=== PATIENT | male | born 1980 | race African-American/Black ===

== ENCOUNTER 2019-04-10 22:57 | Emergency (ER) | payer MEDICAID ==
[~2019-04-10] VITALS: Ht 172.7 cm; Wt 75.0 kg
[~2019-04-10 22:57] MED LIST: BENA20TA10 PO; CLAR10 PO; LISI-652
[2019-04-10 23:17] VITALS: BP 143/96
[2019-04-11 00:53] LABS: CLARITY URINE TURBID (CLEAR); COLOR URINE YELLOW (YELLOW); KETONES URINE TRACE (NEGATIVE); LEUKOCYTE ESTERASE URINE 3+ (NEGATIVE); NITRITE URINE NEGATIVE (NEGATIVE); OCCULT BLOOD URINE 3+ (NEGATIVE); PH URINE 5.5 (4.5-8.0); PROTEIN URINE 1+ (NEGATIVE); SPECIFIC GRAVITY URINE 1.028 (1.005-1.030)
== END 2019-04-11 02:02 | disposition home or self-care (01) ==
LOC: ER 22:57
DX: N39.0 Urinary tract infection, site not specified (principal)
CPT/HCPCS: 87077; 87186; 99283

== ENCOUNTER 2019-05-07 02:50 | Emergency (ER) | payer MEDICAID ==
[~2019-05-07] VITALS: Ht 172.7 cm; Wt 75.0 kg
[2019-05-07 04:38] LABS: CLARITY URINE TURBID (CLEAR); COLOR URINE YELLOW (YELLOW); KETONES URINE NEGATIVE (NEGATIVE); LEUKOCYTE ESTERASE URINE 3+ (NEGATIVE); NITRITE URINE NEGATIVE (NEGATIVE); OCCULT BLOOD URINE 3+ (NEGATIVE); PROTEIN URINE 1+ (NEGATIVE); SPECIFIC GRAVITY URINE 1.017 (1.005-1.030)
[2019-05-07 06:35] VITALS: BP 132/92
== END 2019-05-07 06:35 | disposition home or self-care (01) ==
LOC: ER 02:50
DX: N39.0 Urinary tract infection, site not specified (principal); Z91.14 Patient's other noncompliance with medication regimen
CPT/HCPCS: 82962; 87077; 87186; 99283

== ENCOUNTER 2019-05-21 11:51 | Emergency (ER) | payer MEDICAID ==
[~2019-05-21] VITALS: Ht 172.7 cm; Wt 75.0 kg
[2019-05-21 12:41] LABS: CLARITY URINE TURBID (CLEAR); COLOR URINE YELLOW (YELLOW); KETONES URINE NEGATIVE (NEGATIVE); LEUKOCYTE ESTERASE URINE 3+ (NEGATIVE); NITRITE URINE NEGATIVE (NEGATIVE); OCCULT BLOOD URINE 3+ (NEGATIVE); PH URINE 6.5 (4.5-8.0); PROTEIN URINE 2+ (NEGATIVE); SPECIFIC GRAVITY URINE 1.008 (1.005-1.030); UROBILINOGEN URINE 0.2 E.U./dL (0.2-1.0)
[2019-05-21] MEDS ORDERED: KETOROLAC 60MG/2ML VIAL IM ONE (13:15)
[2019-05-21] MEDS ORDERED: AZITHROMYCIN 500 MG TABLET PO ONE (13:15)
[2019-05-21] MEDS ORDERED: CEFTRIAXONE SODIUM 250 MG/VIAL IM ONE (13:15)
[2019-05-21] MEDS ORDERED: LIDOCAINE HCL 1% 20ML VIAL (Pyxis) INJ INFIL ONE (13:15)
[2019-05-21 13:28] VITALS: BP 129/101
[2019-05-24 04:12] LABS: CHLAMYDIA TRACHOMATIS NAA Negative (Negative); NEISSERIA GONORRHOEAE NAA Negative (Negative)
== END 2019-05-21 13:52 | disposition home or self-care (01) ==
LOC: ER 11:51
DX: N39.0 Urinary tract infection, site not specified (principal); I10 Essential (primary) hypertension; F12.90 Cannabis use, unspecified, uncomplicated
CPT/HCPCS: 81003; 82962; 87077; 87086; 87186; 87491; 87591; 96372; 99283; J0696; J1885; J3490

== ENCOUNTER 2019-06-29 12:47 | Emergency (ER) | payer MEDICAID ==
[~2019-06-29] VITALS: Ht 170.2 cm; Wt 77.0 kg
[2019-06-29 13:57] VITALS: BP 141/102
[2019-06-29 16:58] LABS: BASOPHILS % 0.7 % (0.0-2.0); EOSINOPHILS % 0.9 % (0.0-5.0); HEMATOCRIT. 42.9 % (42.0-52.0); HEMOGLOBIN. 14.5 g/dL (14.0-18.0); LYMPHOCYTES % 17.7 % (20.0-50.0); MEAN CORPUSCULAR HEMOGLOBIN 30.6 pg (28.0-32.0); MEAN CORPUSCULAR VOLUME 90.7 fL (80.0-94.0); MEAN PLATELET VOLUME 8.2 fl (7.4-10.4); MONOCYTES % 10.1 % (2.0-8.0); NEUTROPHILS % 70.6 % (40.0-76.0); PLATELET 240 x1000/uL (130-400); RED BLOOD CELL COUNT 4.74 mill/uL (4.7-6.1); RED CELL DISTRIBUTION WIDTH 14.3 % (11.6-14.6)
[2019-06-29 16:59] LABS: CHLORIDE 107 mEq/L (98-107)
[2019-06-29 17:12] LABS: CLARITY URINE CLOUDY (CLEAR); COLOR URINE YELLOW (YELLOW); KETONES URINE NEGATIVE (NEGATIVE); LEUKOCYTE ESTERASE URINE 3+ (NEGATIVE); NITRITE URINE NEGATIVE (NEGATIVE); OCCULT BLOOD URINE 3+ (NEGATIVE); PROTEIN URINE 2+ (NEGATIVE); SPECIFIC GRAVITY URINE 1.005 (1.005-1.030); UROBILINOGEN URINE 0.2 E.U./dL (0.2-1.0)
== END 2019-06-29 17:56 | disposition home or self-care (01) ==
LOC: ER 12:47
DX: N39.0 Urinary tract infection, site not specified (principal); R03.0 Elevated blood-pressure reading, without diagnosis of hypertension; H54.7 Unspecified visual loss; Z87.828 Personal history of other (healed) physical injury and trauma
CPT/HCPCS: 36415; 80048; 81003; 87077; 87186; 99284

== ENCOUNTER 2019-12-10 13:02 | Emergency (ER) | payer MEDICAID ==
[~2019-12-10] VITALS: Ht 180.3 cm; Wt 100.0 kg
[2019-12-10] MEDS ORDERED: SODIUM CHLORIDE 0.9% 1,000 ML IV ONE (14:48)
[2019-12-10 15:23] LABS: HEMATOCRIT. 45.7 % (42.0-52.0); HEMOGLOBIN. 15.4 g/dL (14.0-18.0); MEAN CORPUSCULAR HEMOGLOBIN 30.8 pg (28.0-32.0); MEAN CORPUSCULAR VOLUME 91.6 fL (80.0-94.0); PLATELET 268 x1000/uL (130-400); RED BLOOD CELL COUNT 4.99 mill/uL (4.7-6.1); RED CELL DISTRIBUTION WIDTH 13.9 % (11.6-14.6)
[2019-12-10 15:29] LABS: CHLORIDE 103 mEq/L (98-107)
[2019-12-10] MEDS ORDERED: METHYLPREDNISOLONE SOD SUCC 125 MG/2 ML VIAL IV ONE (16:15)
[2019-12-10 16:33] LABS: PLATELET ESTIMATE NORMAL
[2019-12-10 18:19] VITALS: BP 134/98
== END 2019-12-10 18:21 | disposition home or self-care (01) ==
LOC: ER 14:01
DX: J45.909 Unspecified asthma, uncomplicated (principal); R06.03 Acute respiratory distress; H54.7 Unspecified visual loss; Z90.49 Acquired absence of other specified parts of digestive tract; Z87.440 Personal history of urinary (tract) infections; Z87.19 Personal history of other diseases of the digestive system; Z79.899 Other long term (current) drug therapy
CPT/HCPCS: 36415; 71045; 80053; 85025; 93005; 96374; 99285; J2930; J7030

== ENCOUNTER 2022-04-08 21:13 | Inpatient (IN) | payer MEDICAID ==
[~2022-04-08] VITALS: Ht 172.7 cm; Wt 80.5 kg
[~2022-04-08 21:13] MED LIST changes: +BENA-8 PO; -BENA20TA10 PO
[2022-04-09] MEDS ORDERED: ONDANSETRON HCL 4MG/2ML INJ IV STA ×2 (00:12→02:01)
[2022-04-09] MEDS ORDERED: MORPHINE SULFATE 4 MG/ML CPJ (NOT FOR IM USE) IV STA ×2 (00:12→02:01)
[2022-04-09] MEDS ORDERED: SODIUM CHLORIDE 0.9% 1,000 ML IV ONE ×2 (00:15→02:00)
[2022-04-09 00:27] LABS: BASOPHILS % 0.3 % (0.0-2.0); EOSINOPHILS % 0.3 % (0.0-5.0); HEMATOCRIT. 43.3 % (42.0-52.0); HEMOGLOBIN. 14.5 g/dL (14.0-18.0); LYMPHOCYTES % 8.1 % (20.0-50.0); MEAN CORPUSCULAR HEMOGLOBIN 30.1 pg (28.0-32.0); MEAN CORPUSCULAR VOLUME 90.2 fL (80.0-94.0); MEAN PLATELET VOLUME 8.5 fl (7.4-10.4); MONOCYTES % 5.6 % (2.0-8.0); NEUTROPHILS % 85.7 % (40.0-76.0); PLATELET 285 x1000/uL (130-400); RED BLOOD CELL COUNT 4.81 mill/uL (4.7-6.1); RED CELL DISTRIBUTION WIDTH 13.6 % (11.6-14.6)
[2022-04-09 00:34] LABS: PROTHROMBIN TIME 11.1 sec (9.6-11.0)
[2022-04-09 00:49] LABS: CHLORIDE 104 mEq/L (98-107)
[2022-04-09] MEDS ORDERED: PIPERACILLIN/TAZ 3.375G PREMIX 50 ML IV ONE (02:00)
[2022-04-09] MEDS ORDERED: VANCOMYCIN 1G PREMIX 200 ML IV ONE (02:00)
[2022-04-09 03:01] LABS: CLARITY URINE CLEAR (CLEAR); COLOR URINE YELLOW (YELLOW); KETONES URINE TRACE (NEGATIVE); LEUKOCYTE ESTERASE URINE NEGATIVE (NEGATIVE); NITRITE URINE NEGATIVE (NEGATIVE); OCCULT BLOOD URINE NEGATIVE (NEGATIVE); PROTEIN URINE TRACE (NEGATIVE); SPECIFIC GRAVITY URINE 1.019 (1.005-1.030); UROBILINOGEN URINE 0.2 E.U./dL (0.2-1.0)
[2022-04-09] MEDS ORDERED: VANCOMYCIN 1G PREMIX 200 ML IV SCH (05:30)
[2022-04-09] MEDS ORDERED: MORPHINE SULFATE 2 MG/ML CPJ (NOT FOR IM USE) IV PRN (07:30)
[2022-04-09 09:38] VITALS: BP 157/110
[2022-04-09] MEDS ORDERED: ONDANSETRON HCL 4MG/2ML INJ IV PRN (10:45)
[2022-04-09] MEDS ORDERED: NALOXONE HCL 0.4MG/ML VIAL IV PRN (11:15)
[2022-04-09 12:00] VITALS: BP 166/110
[2022-04-09] MEDS: PIPERACILLIN/TAZOBACTAM 3.375 G in DEXTROSE 5% WATER 50 ML IV SCH ×2 (13:33→22:38)
[2022-04-09] MEDS: HYDRALAZINE 20MG/ML VIAL IV SCH ×3 (13:33→23:43)
[2022-04-09 16:00] VITALS: BP 138/63
[2022-04-09] MEDS: DEXT 5%/0.45% NACL 1000ML 1,000 ML IV SCH (17:23)
[2022-04-09 20:00] VITALS: BP 151/100
[2022-04-09] MEDS: MORPHINE SULFATE 2 MG/ML CPJ (NOT FOR IM USE) IV PRN (21:06)
[2022-04-09] MEDS ORDERED: MORPHINE SULFATE 2 MG/ML CPJ (NOT FOR IM USE) IV SCH (23:30)
[2022-04-10] VITALS: BP 146/105
[2022-04-10] MEDS: MORPHINE SULFATE 2 MG/ML CPJ (NOT FOR IM USE) IV PRN (03:52)
[2022-04-10 04:00] VITALS: BP 152/89
[2022-04-10] MEDS: PIPERACILLIN/TAZOBACTAM 3.375 G in DEXTROSE 5% WATER 50 ML IV SCH ×3 (05:49→21:51)
[2022-04-10] MEDS: HYDRALAZINE 20MG/ML VIAL IV SCH ×3 (05:50→17:03)
[2022-04-10 06:39] LABS: BASOPHILS % 0.3 % (0.0-2.0); HEMATOCRIT. 44.9 % (42.0-52.0); HEMOGLOBIN. 15.3 g/dL (14.0-18.0); LYMPHOCYTES % 12.5 % (20.0-50.0); MEAN CORPUSCULAR HEMOGLOBIN 30.6 pg (28.0-32.0); MEAN CORPUSCULAR VOLUME 90.1 fL (80.0-94.0); MEAN PLATELET VOLUME 8.8 fl (7.4-10.4); MONOCYTES % 13.7 % (2.0-8.0); NEUTROPHILS % 73.5 % (40.0-76.0); PLATELET 321 x1000/uL (130-400); RED BLOOD CELL COUNT 4.99 mill/uL (4.7-6.1); RED CELL DISTRIBUTION WIDTH 14.2 % (11.6-14.6)
[2022-04-10 07:02] LABS: CHLORIDE 102 mEq/L (98-107)
[2022-04-10 08:00] VITALS: BP 138/97
[2022-04-10] MEDS: PANTOPRAZOLE SODIUM 40 MG/VIAL IV SCH (08:55)
[2022-04-10] MEDS: DEXT 5%/0.45% NACL 1000ML 1,000 ML IV SCH ×2 (08:56→17:02)
[2022-04-10] MEDS ORDERED: DIATR MEGLU/DIATRIZOATE SOLN 30ML PO NR (10:45)
[2022-04-10] MEDS: MORPHINE SULFATE 4 MG/ML CPJ (NOT FOR IM USE) IV PRN ×3 (11:42→21:51)
[2022-04-10 12:00] VITALS: BP 145/105
[2022-04-10] MEDS ORDERED: [UNRECOGNIZED DRUG - SUPPLY] ONE (13:01)
[2022-04-10] MEDS ORDERED: DIATR MEGLU/DIATRIZOATE SOLN 120ML ONE (13:02)
[2022-04-10 16:00] VITALS: BP 131/87
[2022-04-10] MEDS: CHLORPROMAZINE HCL 25MG/1ML AMP IM PRN (19:36)
[2022-04-10 20:00] VITALS: BP 146/95
[2022-04-11] VITALS: BP 118/89
[2022-04-11 04:00] VITALS: BP 140/98
[2022-04-11] MEDS: MORPHINE SULFATE 4 MG/ML CPJ (NOT FOR IM USE) IV PRN ×4 (04:12→21:09)
[2022-04-11] MEDS: HYDRALAZINE 20MG/ML VIAL IV SCH ×5 (06:00→23:04)
[2022-04-11 06:44] VITALS: BP 132/87
[2022-04-11] MEDS: PIPERACILLIN/TAZOBACTAM 3.375 G in DEXTROSE 5% WATER 50 ML IV SCH ×3 (06:50→23:04)
[2022-04-11] MEDS: DEXT 5%/0.45% NACL 1000ML 1,000 ML IV SCH (06:50)
[2022-04-11 08:00] VITALS: BP 146/93
[2022-04-11] MEDS: CHLORPROMAZINE HCL 25MG/1ML AMP IM PRN (08:10)
[2022-04-11] MEDS: PANTOPRAZOLE SODIUM 40 MG/VIAL IV SCH (08:16)
[2022-04-11] MEDS ORDERED: BUPIVACAINE HCL 0.5% (5MG/ML) 50ML ONE (09:07)
[2022-04-11] MEDS ORDERED: DEXAMETHASONE 4MG/ML 1ML VIAL ONE (09:18)
[2022-04-11] MEDS ORDERED: LIDOCAINE HCL 1% 10 MG/ML 10ML VIAL ONE (09:18)
[2022-04-11] MEDS ORDERED: SUCCINYLCHOLINE CHLORIDE 200MG/10ML IV ONE (09:18)
[2022-04-11] MEDS ORDERED: ROCURONIUM BROMIDE 10MG/ML VIAL 5ML IV ONE (09:18)
[2022-04-11] MEDS ORDERED: NEOSTIGMINE METHYLSULFATE 1MG/ML 10 ML VIAL ONE (09:18)
[2022-04-11] MEDS ORDERED: ONDANSETRON HCL 4MG/2ML INJ ONE (09:18)
[2022-04-11] MEDS ORDERED: GLYCOPYRROLATE 0.2 MG/ML 2ML VIAL ONE ×4 (09:19→13:46)
[2022-04-11] MEDS ORDERED: PROPOFOL 200MG/20ML VIAL IV ONE (09:19)
[2022-04-11] MEDS ORDERED: MIDAZOLAM HCL 2 MG/2 ML VIAL ONE (09:20)
[2022-04-11] MEDS ORDERED: FENTANYL CITRATE/PF 50MCG/ML 2ML VIAL ONE (09:20)
[2022-04-11] MEDS ORDERED: METRONIDAZOLE 500 MG PREMIX 100 ML IV ONE (10:13)
[2022-04-11] MEDS ORDERED: LABETALOL HCL 5MG/ML VIAL 20ML IV ONE (10:23)
[2022-04-11] MEDS ORDERED: HYDROMORPHONE HCL/PF 2MG/ML CPJ ONE (10:24)
[2022-04-11] MEDS ORDERED: HYDROMORPHONE HCL/PF 2MG/ML CPJ IV PRN (10:45)
[2022-04-11] MEDS ORDERED: LABETALOL 5MG/ML SYR 20 MG/4 ML SYRINGE IV PRN (10:45)
[2022-04-11] MEDS ORDERED: MEPERIDINE HCL/PF 25MG/ML CPJ IV PRN (10:45)
[2022-04-11] MEDS ORDERED: ONDANSETRON HCL 4MG/2ML INJ IV PRN (10:45)
[2022-04-11] MEDS: DEXT 5%/0.45% NACL KCL 20MEQ/L 1,000 ML IV SCH ×2 (13:29→23:07)
[2022-04-11 15:45] LABS: HEMATOCRIT. 40.9 % (42.0-52.0); HEMOGLOBIN. 13.2 g/dL (14.0-18.0); MEAN CORPUSCULAR VOLUME 93.3 fL (80.0-94.0); MEAN PLATELET VOLUME 7.8 fl (7.4-10.4); PLATELET 277 x1000/uL (130-400); RED BLOOD CELL COUNT 4.38 mill/uL (4.7-6.1); RED CELL DISTRIBUTION WIDTH 14.3 % (11.6-14.6)
[2022-04-11 16:00] VITALS: BP 125/88
[2022-04-11 16:05] LABS: CHLORIDE 105 mEq/L (98-107)
[2022-04-11 17:03] LABS: PLATELET ESTIMATE NORMAL
[2022-04-11 20:00] VITALS: BP 132/84
[2022-04-12] VITALS: BP 126/86
[2022-04-12] MEDS: MORPHINE SULFATE 4 MG/ML CPJ (NOT FOR IM USE) IV PRN ×5 (00:59→23:16)
[2022-04-12 04:00] VITALS: BP 139/84
[2022-04-12] MEDS: PIPERACILLIN/TAZOBACTAM 3.375 G in DEXTROSE 5% WATER 50 ML IV SCH ×3 (05:08→23:00)
[2022-04-12] MEDS: HYDRALAZINE 20MG/ML VIAL IV SCH ×4 (05:34→23:00)
[2022-04-12 06:40] LABS: HEMATOCRIT. 39.6 % (42.0-52.0); HEMOGLOBIN. 13.3 g/dL (14.0-18.0); MEAN CORPUSCULAR HEMOGLOBIN 30.3 pg (28.0-32.0); MEAN CORPUSCULAR VOLUME 90.4 fL (80.0-94.0); MEAN PLATELET VOLUME 8.1 fl (7.4-10.4); PLATELET 256 x1000/uL (130-400); RED BLOOD CELL COUNT 4.38 mill/uL (4.7-6.1)
[2022-04-12 06:48] LABS: CHLORIDE 102 mEq/L (98-107)
[2022-04-12 08:00] VITALS: BP 130/96
[2022-04-12] MEDS: PANTOPRAZOLE SODIUM 40 MG/VIAL IV SCH (08:50)
[2022-04-12] MEDS: DEXT 5%/0.45% NACL KCL 20MEQ/L 1,000 ML IV SCH ×2 (08:51→17:29)
[2022-04-12 12:00] VITALS: BP 144/103
[2022-04-12 14:35] LABS: PLATELET ESTIMATE NORMAL
[2022-04-12 16:00] VITALS: BP 137/92
[2022-04-12 20:00] VITALS: BP 146/94
[2022-04-13] VITALS: BP 151/92
[2022-04-13 04:00] VITALS: BP 145/97
[2022-04-13] MEDS: HYDRALAZINE 20MG/ML VIAL IV SCH ×3 (05:16→17:08)
[2022-04-13] MEDS: PIPERACILLIN/TAZOBACTAM 3.375 G in DEXTROSE 5% WATER 50 ML IV SCH ×3 (05:16→22:00)
[2022-04-13] MEDS: DEXT 5%/0.45% NACL KCL 20MEQ/L 1,000 ML IV SCH (05:16)
[2022-04-13 08:07] VITALS: BP 136/93
[2022-04-13] MEDS: PANTOPRAZOLE SODIUM 40 MG/VIAL IV SCH (08:24)
[2022-04-13 11:50] VITALS: BP 154/101
[2022-04-13 16:38] VITALS: BP 143/95
[2022-04-13] MEDS: MORPHINE SULFATE 2 MG/ML CPJ (NOT FOR IM USE) IV PRN ×2 (17:30→20:39)
[2022-04-13 20:00] VITALS: BP 158/108
[2022-04-14] VITALS: BP 144/103
[2022-04-14] MEDS: DEXT 5%/0.45% NACL KCL 20MEQ/L 1,000 ML IV SCH (01:00)
[2022-04-14 04:00] VITALS: BP 128/80
[2022-04-14] MEDS: HYDRALAZINE 20MG/ML VIAL IV SCH ×2 (06:00)
[2022-04-14] MEDS: PIPERACILLIN/TAZOBACTAM 3.375 G in DEXTROSE 5% WATER 50 ML IV SCH (06:00)
[2022-04-14 08:00] VITALS: BP 144/108
[2022-04-14] MEDS: PANTOPRAZOLE SODIUM 40 MG/VIAL IV SCH ×2 (08:58→08:59)
[2022-04-14] MEDS ORDERED: METR-167 MT (09:39)
[2022-04-14] MEDS ORDERED: LEVO500T90 MT (09:39)
[2022-04-14 10:35] VITALS: BP 140/105
[2022-04-14] MEDS ORDERED: HYDRALAZINE HCL 10MG TABLET PO SCH (14:00)
== END 2022-04-14 11:56 | disposition home health service (06) | DRG 231 ==
LOC: ER 21:13 → 8WST 04-09 02:25 → ENRESERV 04-09 07:21
PROVIDERS: ADMIT Internal Medicine; ATTEND Internal Medicine
PROC: 0D1N0Z4 Bypass Sigmoid Colon to Cutaneous, Open Approach (ICD-10-PCS; principal; 2022-04-11)
DX: K57.32 Diverticulitis of large intestine without perforation or abscess without bleeding (principal); K56.609 Unspecified intestinal obstruction, unspecified as to partial versus complete obstruction; I10 Essential (primary) hypertension; I16.0 Hypertensive urgency; Z20.822 Contact with and (suspected) exposure to COVID-19; J45.909 Unspecified asthma, uncomplicated; Z79.899 Other long term (current) drug therapy; Z90.49 Acquired absence of other specified parts of digestive tract
CPT/HCPCS: 36415; 74018; 74176; 74181; 80048; 80053; 81003; 83605; 85025; 87426; 93005; 97162; 97166; 99291; C9113; J0330; J0360; J1100; J1170; J2250; J2270; J2405; J2543; J2704; J2710; J3010; J3230; J3370; J3490; J7030; J7060; Q9963

== ENCOUNTER 2024-12-13 19:52 | Emergency (ER) | payer MEDICAID, OTHER ==
[~2024-12-13] VITALS: Ht 172.7 cm; Wt 75.0 kg
[~2024-12-13 19:52] MED LIST changes: +LEVO-65 MT; -LISI-652; +METR-167 MT
[2024-12-13 19:54] VITALS: O2SAT 99
[2024-12-13] MEDS: IBUPROFEN 600MG TABLET PO STA (21:05)
[2024-12-13 22:20] LABS: EOSINOPHILS % 2.2 % (0.0-5.0); HEMATOCRIT. 41.3 % (42.0-52.0); HEMOGLOBIN. 13.7 g/dL (14.0-18.0); LYMPHOCYTES % 28.3 % (20.0-50.0); MEAN CORPUSCULAR HEMOGLOBIN 31.1 pg (28.0-32.0); MEAN CORPUSCULAR HGB CONC 33.1 g/dL (31.0-37.0); MEAN PLATELET VOLUME 8.5 fl (7.4-10.4); NEUTROPHILS % 60.5 % (40.0-76.0); PLATELET 237 x1000/uL (130-400); RED BLOOD CELL COUNT 4.39 mill/uL (4.7-6.1); RED CELL DISTRIBUTION WIDTH 14.4 % (11.6-14.6); WHITE BLOOD COUNT 8.6 x1000/uL (4.5-11.0)
[2024-12-13 22:23] LABS: CHLORIDE 105 mEq/L (98-107); POTASSIUM 3.8 mEq/L (3.5-5.1); SODIUM 138 mEq/L (136-145)
[2024-12-13 22:24] LABS: CALCIUM 9.4 mg/dL (8.7-10.4); CARBON DIOXIDE 26 mEq/L (21-32)
[2024-12-13 22:26] LABS: INR 1.1; PROTHROMBIN TIME 11.5 sec (9.6-11.0)
[2024-12-13 22:29] LABS: CREATININE 1.1 mg/dL (0.6-1.3); GLUCOSE 85 mg/dL (70-105); UREA NITROGEN BLOOD 14 mg/dL (9-23)
[2024-12-13 22:31] LABS: ALANINE AMINOTRANSFERASE 16 IU/L (10-49); ALBUMIN 4.6 g/dL (3.2-4.8); ASPARTATE AMINOTRANSFERASE 22 IU/L (<34); BILIRUBIN DIRECT 0.3 mg/dL (<=3.0)
[2024-12-13 22:32] LABS: PROTEIN TOTAL 7.8 g/dL (6.0-8.3)
[2024-12-14] MEDS ORDERED: POLY17PO3 MT (01:06)
[2024-12-14] MEDS: POLYETHYLENE GLYCOL 3350 (17GM) 1 DOSE PACK PO ONE (02:07)
[2024-12-14 02:10] VITALS: BP 134/87; PULSE 74; RESP 18; TEMP 36.9; O2SAT 98
== END 2024-12-14 02:25 | disposition home or self-care (01) ==
LOC: ER 19:52
DX: K59.09 Other constipation (principal); J45.909 Unspecified asthma, uncomplicated; I10 Essential (primary) hypertension; Z90.49 Acquired absence of other specified parts of digestive tract; Z79.899 Other long term (current) drug therapy; Z98.890 Other specified postprocedural states
CPT/HCPCS: 80076; 80048; 83605; 83690; 85025; 85610; 36415; 74176; 99284; Z7610